=== PATIENT | male | born 1980 ===

== ENCOUNTER 2017-01-19 14:52 | Emergency (ER) | payer BC ==
[2017-01-19 16:09] VITALS: RESP 18; BMI 36.6
--- NOTE | 2017-01-19 17:57 | RAD ---
HISTORY: cough/fever COMPARISON: No prior. TECHNIQUE: Chest PA and lateral FINDINGS: LUNGS: Suspicious for small infiltrate at the left lower lobe/ retrocardiac region. Otherwise the lungs are clear. PLEURA: No significant pleural effusion identified. No pneumothorax apparent. CARDIOVASCULAR: Normal. OSSEOUS STRUCTURES: No significant abnormalities. VISUALIZED UPPER ABDOMEN: Normal. OTHER FINDINGS: None. IMPRESSION: Suspicious for small infiltrate at the left lower lobe.
[2017-01-19 18:31] VITALS: TEMP 98.9; O2SAT 97
[2017-01-19] MEDS ORDERED: cefTRIAXone 1 gm 1 GM/100 ML BAG IVPB STA (18:36)
--- NOTE | 2017-01-19 18:52 | ED PDOC ---
Arrival/HPI - General Chief Complaint: Cough, Cold, Congestion Time Seen by Provider: 01/19/17 16:28 Historian: Patient - History of Present Illness Narrative History of Present Illness (Text): 01/19/17 18:49 36-year-old male presents today with a 2 day history of productive cough nasal congestion sore throat and fevers of 102 at home. Patient denies chest pain or shortness of breath. Denies abdominal pain. Patient states he's had an episode of diarrhea at home. Patient denies sick contacts. Patient complaining of continued productive cough. Patient states he took [id number] cold medications without improvement. No medications have been taken for pain at home. Denies dizziness or weakness. No other complaints Time/Duration: Other (2 days) Symptom Onset: Gradual Symptom Course: Worsening Quality: Aching Past Medical History - Provider Review Nursing Documentation Reviewed: Yes - Travel History Have you recently traveled outside [place] w/in the past 3 mons?: No - Infectious Disease Hx of Infectious Diseases: None - Tetanus Immunization Tetanus Immunization: Unknown - Psychiatric Hx Substance Use: No - Anesthesia Hx Anesthesia: No Hx Anesthesia Reactions: No Hx Malignant Hyperthermia: No Family/Social History - Physician Review Nursing Documentation Reviewed: Yes Family/Social History: Unknown Family HX Smoking Status: Current Some Days Smoker Hx Alcohol Use: No Hx Substance Use: No Allergies/Home Meds Allergies/Adverse Reactions: Allergies iodine Allergy (Verified 01/19/17 16:24) SHORTNESS OF BREATH Review of Systems - Review of Systems Constitutional: Fevers. absent: Fatigue Respiratory: Cough, Sputum. absent: SOB Cardiovascular: absent: Chest Pain, Palpitations Gastrointestinal: absent: Abdominal Pain, Constipation, Nausea, Vomiting Genitourinary Male: absent: Dysuria Musculoskeletal: absent: Arthralgias Skin: absent: Rash, Pruritis Neurological: absent: Headache, Dizziness Physical Exam Vital Signs Reviewed: Yes Vital Signs Temp Pulse Resp BP Pulse Ox 01/19/17 18:00 98.9 F 78 18 133/86 97 01/19/17 16:09 99.3 F 85 18 135/92 H 96 Temperature: Afebrile Blood Pressure: Hypertensive Pulse: Regular Respiratory Rate: Normal Appearance: Positive for: Well-Appearing, Non-Toxic, Comfortable Pain Distress: None Mental Status: Positive for: Alert and Oriented X 3 - Systems Exam Head: Present: Atraumatic Ears: Present: Normal Mouth: Present: Moist Mucous Membranes. No: Drooling, Trismus Pharnyx: Present: Normal. No: ERYTHEMA, EXUDATE, TONSILS ENLARGED, Peritonsilar Swelling, Uvular Deviation, Muffled/Hoarse Voice Neck: Present: Normal Range of Motion, Trachea Midline. No: Lymphadenopathy Respiratory/Chest: Present: Clear to Auscultation, Good Air Exchange. No: Respiratory Distress, Accessory Muscle Use, Wheezes, Retracting, Rhonchi, Tachypneic, Tender to Palpation Cardiovascular: Present: Regular Rate and Rhythm, Normal S1, S2. No: Murmurs Abdomen: No: Tenderness, Distention, Rebound, Guarding Back: Present: Normal Inspection Upper Extremity: Present: Normal ROM Lower Extremity: Present: Normal ROM Neurological: Present: GCS=15 Skin: Present: Warm, Dry, Normal Color. No: Rashes Psychiatric: Present: Alert, Oriented x 3 Medical Decision Making ED Course and Treatment: 01/19/17 18:53 36-year-old male nontoxic well-appearing complaining of 2 day history of fever. Chest x-ray shows a left lower lobe infiltrate Patient given Motrin by mouth Patient reassessment, patient feeling better after medications. Vital signs are stable. Patient started on Rocephin IV and Zithromax by mouth. Patient nontoxic well- appearing in no distress with stable vital signs. We'll trial course of outpatient antibiotics. We'll discharge the patient with Zithromax by mouth and follow up with primary care physician within the next 2 days. Advised to return if symptoms worsen persist or if new concerning symptoms develop Patient verbalizes understanding of discharge instructions and need for immediate followup. all aspects of this case were discussed the attending of record. Impression: Pneumonia Motrin every 6 hours as needed for pain/fever reduction Zithromax once daily 4 days Increase fluids Follow-up with primary care physician within the next 2 days Return immediately if symptoms worsen persist or if new concerning symptoms develop - Lab Interpretations Lab Results: Lab Results 01/19/17 16:55: Influenza Typ A,B (EIA) Negative for flu a/b - RAD Interpretation Radiology Orders: 01/19/17 16:42 CHEST TWO VIEWS (PA/LAT) [RAD] Stat - Medication Orders Current Medication Orders: Discontinued Medications Azithromycin (Zithromax) 500 mg PO STAT STA PRN Reason: Protocol Stop: 01/19/17 18:37 Last Admin: 01/19/17 18:49 Dose: 500 mg Ceftriaxone Sodium (Rocephin 1 Gram Ivpb) 1 gm in 100 mls @ 200 mls/hr IVPB STAT STA PRN Reason: Protocol Stop: 01/19/17 19:05 Last Admin: 01/19/17 18:59 Dose: 200 mls/hr eMAR Start Stop Document 01/19/17 18:59 EQ (Rec: 01/19/17 19:00 EQ [facility] [id number]) Intravenous Solution Start Date 01/19/17 Start Time 18:59 Ibuprofen (Motrin Tab) 600 mg PO STAT STA Stop: 01/19/17 16:43 Last Admin: 01/19/17 16:52 Dose: 600 mg MAR Pain/Vitals Document 01/19/17 16:52 EQ (Rec: 01/19/17 16:52 EQ [facility] [id number]) Pain Reassessment Is This A Pain ReAssessment? No Sleep Is patient sleeping during reassessment? No Presence of Pain Presence of Pain Yes Pain Scale Used Pain Scale Used Numeric Disposition/Present on Arrival - Present on Arrival Any Indicators Present on Arrival: No History of DVT/PE: No History of Uncontrolled Diabetes: No Urinary Catheter: No History of Decub. Ulcer: No History Surgical Site Infection Following: None - Disposition Have Diagnosis and Disposition been Completed?: Yes Diagnosis: Pneumonia Disposition: HOME/ ROUTINE Disposition Time: 18:54 Patient Plan: Discharge Patient Problems: Current Active Problems Problem Status Onset Pneumonia Acute Condition: GOOD Discharge Instructions (ExitCare): Pneumonia (ED) Additional Instructions: Motrin every 6 hours as needed for pain/fever reduction Zithromax once daily 4 days Increase fluids Follow-up with primary care physician within the next 2 days Return immediately if symptoms worsen persist or if new concerning symptoms develop Prescriptions: Azithromycin [Zithromax] 250 mg PO DAILY #4 tab Ibuprofen [Motrin] 600 mg PO Q6H PRN #20 tab PRN Reason: pain/fever reduction Referrals: Hebert Valentin MD [Primary Care Provider] - Follow up with primary Forms: [employer] (Sudanese), WORK NOTE
[2017-01-19 19:45] VITALS: BP 135/63; PULSE 88
== END 2017-01-19 19:59 | disposition home or self-care (01) ==
LOC: ED 14:52 → MERGE 14:52 → ED 19:59
DX: J18.9 Pneumonia, unspecified organism (principal); R05 Cough
CPT/HCPCS: 71020; 87804; 99283; J0696